=== PATIENT | male | born 1970 | race Caucasian/White ===

== ENCOUNTER 2017-10-01 13:30 | Emergency (ER) | payer SELFPAY ==
[~2017-10-01] VITALS: Ht 172.7 cm; Wt 72.6 kg
[2017-10-01 13:30] VITALS: BP 159/113
[~2017-10-01 13:30] MED LIST: AMIODARONE 150 MG/3 ML VIAL IV ONE; CODE BLUE PARTICIPANT 1 EA MISC MC ONE; EPINEPHrine PFS 0.1 MG/ML SYR IVP ONE; SODIUM BICARBONATE 8.4% PFS 50 MEQ/50 ML SYR IVP ONE
== END 2017-10-01 13:42 | disposition expired ==
LOC: MED 13:30 → EDBD 13:30 → MED 13:42
DX: I46.9 Cardiac arrest, cause unspecified (principal)
CPT/HCPCS: 92950; 99285; J0171; J0282